=== PATIENT | female | born 1955 | race Caucasian/White ===

== ENCOUNTER 2017-06-16 07:37 | Outpatient (CLI) | payer OTHER | END 2017-06-16 14:35 | disposition home or self-care (01) | LOC: MRI 07:37 | DX: M75.121 Complete rotator cuff tear or rupture of right shoulder, not specified as traumatic (principal) | CPT/HCPCS: 73221 ==

== ENCOUNTER 2017-06-16 08:03 | Outpatient (CLI) | payer OTHER | END 2017-06-16 14:36 | disposition home or self-care (01) | LOC: RAD 08:03 | DX: M25.511 Pain in right shoulder (principal) ==